=== PATIENT | female | born 1945 | race Hispanic/Latino ===

== ENCOUNTER → 2017-03-11 | Outpatient (CLI) | payer OTHER ==
[~2017-03-11] MED LIST: AMLO10TA2 PO; ATOR40TA71 PO; CHOL500050 PO; INSU100I21 SQ; LEVO5TAB13 PO; LOSA50TA37 PO; METF10004 PO; METO25TA6 PO; NIAC500T22 PO; PANT40TA25 PO; WARF-57 PO; WARF10TA45 PO
== END | disposition home or self-care (01) ==
LOC: SHCH 17:00
PROVIDERS: ATTEND Internal Medicine Cardiovascular Disease
DX: I87.2 Venous insufficiency (chronic) (peripheral) (principal); I73.9 Peripheral vascular disease, unspecified
CPT/HCPCS: 93978

== ENCOUNTER → 2017-03-24 | Outpatient (CLI) | payer OTHER | END | disposition home or self-care (01) | LOC: SHCH 11:41 | PROVIDERS: ATTEND Internal Medicine Cardiovascular Disease | DX: I73.9 Peripheral vascular disease, unspecified (principal); I87.2 Venous insufficiency (chronic) (peripheral) | CPT/HCPCS: 93970 ==

== ENCOUNTER 2020-06-03 18:52 | Emergency (ER) | payer OTHER ==
[~2020-06-03 18:52] MED LIST changes: +AMLO-258 PO; -AMLO10TA2 PO; -LOSA50TA37 PO; +LOSA50TA64 PO; +METF-446 PO; -METF10004 PO; -PANT40TA25 PO; +PANT40TA54 PO
== END 2020-06-03 20:25 | disposition home or self-care (01) ==
LOC: EDH 18:52
DX: S32.89XA Fracture of other parts of pelvis, initial encounter for closed fracture (principal); E11.9 Type 2 diabetes mellitus without complications; I10 Essential (primary) hypertension; I48.91 Unspecified atrial fibrillation; Z85.3 Personal history of malignant neoplasm of breast; W18.39XA Other fall on same level, initial encounter; Y93.89 Activity, other specified; Y92.89 Other specified places as the place of occurrence of the external cause; Y99.8 Other external cause status
CPT/HCPCS: 99282

== ENCOUNTER → 2020-07-03 | Outpatient (CLI) | payer OTHER | END | disposition home or self-care (01) | LOC: SHCH 13:07 | PROVIDERS: ATTEND Internal Medicine Cardiovascular Disease | DX: I48.0 Paroxysmal atrial fibrillation (principal) | CPT/HCPCS: 93306; 93356 ==

== ENCOUNTER 2020-09-04 05:54 | Day surgery (SDC) | payer OTHER ==
[~2020-09-04] VITALS: Ht 157.5 cm; Wt 72.6 kg
[2020-09-04] VITALS (11 sets, daily range): BP systolic 142–224; BP diastolic 47–99
[2020-09-04] MEDS ORDERED: IOHEXOL-350 50ML VIAL IV ONE (07:20)
[2020-09-04] MEDS ORDERED: NACL 0.9% 1000ML 1,000 ML IV ONE ×2 (07:37→10:09)
[2020-09-04] MEDS ORDERED: MIDAZOLAM HCL 1 MG/ML 2ML VIAL ONE (07:39)
[2020-09-04] MEDS ORDERED: FENTANYL CITRATE PF 50 MCG/1 ML 2ML VIAL ONE (07:39)
[2020-09-04] MEDS ORDERED: PROPOFOL 10 MG/ML 20ML VIAL IV ONE ×2 (07:40→07:47)
[2020-09-04] MEDS ORDERED: ROCURONIUM 10MG/1ML SYR 10 MG/ML ML ONE (07:46)
[2020-09-04] MEDS ORDERED: HYDRALAZINE 20MG/ML VIAL ONE (07:52)
[2020-09-04] MEDS ORDERED: INDOMETHACIN 50 MG SUPP.RECT RC SCH (09:00)
[2020-09-04] MEDS ORDERED: OMEP20CA12 PO (10:44)
[2020-09-04] MEDS ORDERED: SITA100T12 PO (10:44)
[2020-09-04] MEDS ORDERED: GLIP10TA9 PO (10:44)
[2020-09-04] MEDS ORDERED: LEVO25CA4 PO (10:44)
[2020-09-04] MEDS ORDERED: LOSA100T58 PO (10:44)
[2020-09-05] MEDS ORDERED: GLYCOPYRROLATE 1 MG/5 ML SYRINGE ONE (07:35)
[2020-09-05] MEDS ORDERED: PROPOFOL 10 MG/ML 20ML VIAL IV ONE (07:35)
[2020-09-05] MEDS ORDERED: LIDOCAINE HCL 1% 20 ML VIAL ONE (07:35)
== END 2020-09-04 11:40 | disposition home or self-care (01) ==
LOC: DAH 05:54
PROVIDERS: ATTEND Internal Medicine Gastroenterology
DX: K83.1 Obstruction of bile duct (principal); Z20.822 Contact with and (suspected) exposure to COVID-19; I25.10 Atherosclerotic heart disease of native coronary artery without angina pectoris; E11.22 Type 2 diabetes mellitus with diabetic chronic kidney disease; I12.0 Hypertensive chronic kidney disease with stage 5 chronic kidney disease or end stage renal disease; N18.6 End stage renal disease; R19.4 Change in bowel habit; K21.9 Gastro-esophageal reflux disease without esophagitis; E11.9 Type 2 diabetes mellitus without complications; I48.91 Unspecified atrial fibrillation; Z99.2 Dependence on renal dialysis; Z79.899 Other long term (current) drug therapy; Z79.84 Long term (current) use of oral hypoglycemic drugs; Z98.890 Other specified postprocedural states; Z79.890 Hormone replacement therapy; Z79.01 Long term (current) use of anticoagulants; Z86.010 Personal history of colon polyps; Z85.3 Personal history of malignant neoplasm of breast
CPT/HCPCS: 43274; 74328; 82948; 87635; 93005; A4215 ×2; A4221; A4222; A4223; A4606; A4657; A4663; C1769 ×2; C1773; C2625; C9803; J0360; J2250; J2704 ×2; J3010; J7030 ×3; Q9967; 74330; J3490

== ENCOUNTER 2020-10-07 06:55 | Day surgery (SDC) | payer OTHER ==
[~2020-10-07 06:55] MED LIST changes: -CHOL500050 PO; +GLIP10TA9 PO; -INSU100I21 SQ; +LEVO25CA4 PO; -LEVO5TAB13 PO; +LOSA100T58 PO; -LOSA50TA64 PO; -METF-446 PO; -NIAC500T22 PO; +OMEP20CA12 PO; -PANT40TA54 PO; +SITA100T12 PO
== END 2020-10-07 19:00 | disposition home or self-care (01) ==
LOC: ENDO 06:55 → DAH 06:55 → ENDO 19:00
PROVIDERS: ATTEND Internal Medicine Gastroenterology
DX: Z01.818 Encounter for other preprocedural examination (principal); Z20.822 Contact with and (suspected) exposure to COVID-19; K83.1 Obstruction of bile duct
CPT/HCPCS: 87635; C9803

== ENCOUNTER 2020-10-16 05:58 | Day surgery (SDC) | payer OTHER ==
[~2020-10-16] VITALS: Ht 157.5 cm; Wt 74.8 kg
[2020-10-16] VITALS (13 sets, daily range): BP systolic 129–219; BP diastolic 49–78
[2020-10-16] MEDS ORDERED: IOHEXOL-350 50ML VIAL IV ONE ×2 (06:48→07:05)
[2020-10-16] MEDS ORDERED: 0.9%NACL 1000ML 1,000 ML IV ONE (06:49)
[2020-10-16] MEDS ORDERED: PROPOFOL 10 MG/ML 20ML VIAL IV ONE ×3 (07:04→08:47)
[2020-10-16] MEDS ORDERED: LIDOCAINE HCL 1% 20 ML VIAL ONE (07:04)
[2020-10-16] MEDS ORDERED: FENTANYL CITRATE PF 50 MCG/1 ML 2ML VIAL ONE (07:04)
[2020-10-16] MEDS ORDERED: ONDANSETRON 4MG INJ ONE (07:04)
[2020-10-16] MEDS ORDERED: SUCCINYLCHOLINE 200MG/10ML SYR ONE (07:04)
[2020-10-16] MEDS ORDERED: INDOMETHACIN 50 MG SUPP.RECT RC SCH (07:30)
[2020-10-16] MEDS ORDERED: EPHEDRINE SULFATE 50 MG/ML AMPULE ONE (08:34)
[2020-10-16] MEDS ORDERED: HYDRALAZINE 20MG/ML VIAL ONE ×2 (09:16→09:36)
== END 2020-10-16 10:45 | disposition home or self-care (01) ==
LOC: DAH 05:58 → ENDO 05:58
PROVIDERS: ATTEND Internal Medicine Gastroenterology
DX: K80.50 Calculus of bile duct without cholangitis or cholecystitis without obstruction (principal); K83.8 Other specified diseases of biliary tract; K91.89 Other postprocedural complications and disorders of digestive system; K21.9 Gastro-esophageal reflux disease without esophagitis; I25.10 Atherosclerotic heart disease of native coronary artery without angina pectoris; I48.91 Unspecified atrial fibrillation; E11.22 Type 2 diabetes mellitus with diabetic chronic kidney disease; I12.9 Hypertensive chronic kidney disease with stage 1 through stage 4 chronic kidney disease, or unspecified chronic kidney disease; N18.9 Chronic kidney disease, unspecified; Z90.49 Acquired absence of other specified parts of digestive tract; Z98.890 Other specified postprocedural states; Z86.010 Personal history of colon polyps; Z95.1 Presence of aortocoronary bypass graft; Z79.01 Long term (current) use of anticoagulants; Z79.84 Long term (current) use of oral hypoglycemic drugs; Z79.899 Other long term (current) drug therapy; Z20.822 Contact with and (suspected) exposure to COVID-19; Z85.3 Personal history of malignant neoplasm of breast
CPT/HCPCS: 43264; 43276; 74328; 82948 ×2; 88104; 88305; A4215; A4221; A4222; A4223; A4606; A4649; A4657; A4663; C1769; C1773; C2625 ×2; J0330; J0360 ×2; J2405; J2704 ×3; J3010; J3490; J7030; Q9967; 74330

== ENCOUNTER → 2024-05-10 | Outpatient (CLI) | payer OTHER ==
[~2024-05-10] MED LIST changes: +GLIP10TA16 PO; -GLIP10TA9 PO; -LOSA100T58 PO; +LOSA100T59 PO
--- NOTE | 2024-05-15 12:30 | HMCSR ---
APPROVED REPORT Laterality: Bilateral Indications i73.9 VELOCITY AND DOPPLER WAVEFORM ANALYSIS DORMITORY COUNSELOR (R) 109.0cm/sec, Monophasic, DORMITORY COUNSELOR (L) 101.9cm/sec, Monophasic, Prof Fem Art. (R) 80.8cm/sec, Monophasic, Prof Fem Art. (L) 75.9cm/sec, Monophasic, Fem Art Prox. (R) 68.2cm/sec, Monophasic, Fem Art Prox. (L) 94.9cm/sec, Monophasic, Fem Art Mid. (R) 87.0cm/sec, Monophasic, Fem Art Mid. (L) 71.8cm/sec, Monophasic, Fem Art Dist (R) 110.4cm/sec, Monophasic, Fem Art Dist. (L) 91.5cm/sec, Monophasic, Pop Art(AK) (R) 80.1cm/sec, Monophasic, Pop Art (AK) (L) 93.3cm/sec, Monophasic, Pop Art (Fossa)(R) 96.6cm/sec, Monophasic, Pop Art (Fossa) (L) 82.5cm/sec, Monophasic, Pop Art(BK) (R) 64.9cm/sec, Monophasic, Pop Art (BK) (L) 76.3cm/sec, Monophasic, USER EXPERIENCE TEAM LEAD Prox. (R) cm/sec, Occluded, USER EXPERIENCE TEAM LEAD Prox. (L) cm/sec, Occluded, USER EXPERIENCE TEAM LEAD Mid. (R) 34.5cm/sec, Monophasic, Collateral FlowPTA Mid. (L) cm/sec, Occluded, USER EXPERIENCE TEAM LEAD Dist. (R) 63.5cm/sec, Monophasic, Collateral FlowPTA Dist. (L) cm/sec, Occluded, Per Art Prox. (R) cm/sec, Occluded, Per Art Prox. (L) 46.7cm/sec, Monophasic, Per Art Mid. (R) cm/sec, Occluded, Per Art Mid. (L) cm/sec, Occluded, Per Art Dist. (R) cm/sec, Occluded, Per Art Dist. (L) cm/sec, Occluded, ALESAI Prox. (R) 119.2cm/sec, Monophasic, ALESIA Prox. (L) 65.5cm/sec, Monophasic, ALESIA Mid. (R) 86.5cm/sec, Monophasic ALESIA Mid. (L) 61.9cm/sec, Monophasic, ALESIA Dist. (R) 81.6cm/sec, Monophasic, ALESIA Dist. (L) 90.6cm/sec, Monophasic, Technologist Impression Monophasic waveforms in the bilateral lower extremities. Occlusion of the Right peroneal artery. Right proximal USER EXPERIENCE TEAM LEAD appears occluded with collateral flow distally. Occlusion of the Left USER EXPERIENCE TEAM LEAD. Left mid to distal Peroneal artery appears occluded.
== END | disposition home or self-care (01) ==
LOC: SHCH 13:17
PROVIDERS: ATTEND Internal Medicine Cardiovascular Disease
DX: I73.9 Peripheral vascular disease, unspecified (principal)
CPT/HCPCS: 93925